=== PATIENT | male | born 2000 | race Caucasian/White ===

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

== ENCOUNTER 2022-07-20 16:00 | Emergency (ER) | payer BC, SELFPAY ==
--- NOTE | ~2022-07-20 | XR_ITS ---
EXAMINATION: XR foot LT min 3V DATE: 07/20/2022 16:19 INDICATION: Left foot pain and swelling. TECHNIQUE: 4 views of left foot were obtained. COMPARISON: Left foot radiographs 11/07/2011 FINDINGS: Bone alignment is normal. There is a nondisplaced oblique extra-articular fracture of base of third metatarsal. IMPRESSION: 1. Nondisplaced extra-articular oblique fracture of base of third metatarsal. Reviewed, dictated and finalized at location A.
[2022-07-20 16:13] VITALS: BP 121/60; PULSE 83; RESP 14; TEMP 37.5; O2SAT 100
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
== END 2022-07-20 17:15 | disposition home or self-care (01) ==
PROVIDERS: Emergency Provider Nurse Practitioner; PCP Internal Medicine Infectious Disease
DX: S92.335A Nondisplaced fracture of third metatarsal bone, left foot, initial encounter for closed fracture (principal); V86.06XA Driver of dirt bike or motor/cross bike injured in traffic accident, initial encounter; F17.200 Nicotine dependence, unspecified, uncomplicated
CPT/HCPCS: 29515; 73630; 99214; G0463

== ENCOUNTER 2022-08-08 09:28 | Emergency (ER) | payer BC, SELFPAY ==
[2022-08-08 09:33] VITALS: BP 116/70; PULSE 57; RESP 16; TEMP 36.6; O2SAT 100
--- NOTE | 2022-08-08 09:37 | ED.EAR ---
HPI - Ear Problem General Chief complaint: Ear Stated complaint: Ear Pain Time Seen by Provider: 08/08/22 09:30 Source: patient and RN notes reviewed History of Present Illness HPI Narrative: Patient is a 22-year-old male who presents to urgent care with complaints of left ear pain that started this morning. Patient has been taking Tylenol. States that he did go swimming a few days ago. Denies any fever or other upper respiratory complaints. No acute distress noted. Patient aware of the plan of care. Some parts of this dictation were generated by voice recognition software and may contain typographical and/or grammatical inaccuracies. Related Data Allergies Allergy/AdvReac Type Severity Reaction Status Date / Time No Known Allergies Allergy Verified 08/08/22 09:33 Review of Systems Review of Systems: CONSTITUTIONAL: Denies fever, chills, or sweats. EYES: Denies visual changes, redness, or discharge. ENT: Denies rhinorrhea, congestion, sore throat. Reports of left otalgia CARDIOVASCULAR: Denies chest pain, palpitations, or edema. RESPIRATORY: Denies cough or dyspnea. GASTROINTESTINAL: Denies abdominal pain, nausea, vomiting, or diarrhea. GENITOURINARY: Denies dysuria or hematuria. SKIN: Denies rash or itching. MUSCULOSKELETAL: Denies back pain, joint pain, or myalgia. NEUROLOGIC: Denies headache, numbness, or weakness. All other systems reviewed are negative, except as documented in HPI. [facility] Surgical History Surgical History H/O splenectomy Hx of abdominal surgery Social History Social History (Updated 07/25/22 @ 14:35 by Marcia Armendariz CMA) Smoking status: Current every day smoker Alcohol intake: current Substance use: never Gender identity (if verbalized by the patient): Male Comments At the time of my signature, I reviewed and agree with the nursing past medical, surgical, social, and family history. There is no relevant family history pertinent to the patient complaint. Exam Narrative: GENERAL: This is a well-nourished, well-developed patient, in no apparent distress. HEAD: normocephalic, atraumatic. EYES: PERRL. Sclera clear/white. Vision is grossly intact. EARS: External ears normal, auditory canals clear and without drainage, moderate erythema mild injection to the left TM. Right TM normal without perforation. Hearing grossly intact. NOSE: External nose normal with no obvious nasal discharge, nares without redness, no rhinorrhea. THROAT: Mucous membranes moist, posterior pharynx clear. NECK: Neck supple, SKIN: warm, intact with no suspicious lesions or rash, good texture and turgor. NEURO: awake, alert, and oriented to person, place Course Course Level of Care: Express Care Visit Vital Signs Vital signs: Vital Signs Temperature 98 F 08/08/22 09:33 Pulse Rate 57 L 08/08/22 09:33 Respiratory Rate 16 08/08/22 09:33 Blood Pressure 116/70 08/08/22 09:33 Pulse Oximetry 100 08/08/22 09:33 Oxygen Delivery Room Air 08/08/22 09:33 Temperature 98 F 08/08/22 09:33 Pulse Rate 57 L 08/08/22 09:33 Respiratory Rate 16 08/08/22 09:33 Blood Pressure 116/70 08/08/22 09:33 Pulse Oximetry 100 08/08/22 09:33 Oxygen Delivery Room Air 08/08/22 09:33 Reviewed Medical Decision Making MDM Narrative Medical decision making narrative: Advised patient to complete the oral antibiotic regimen as prescribed. Do not put anything in the ear such as bjvj-hwi-fzaiueq drops, Q-tips, peroxide or headphones. Do not submerge her head in water for the next 5-7 days. Follow-up with your PCP within 2-5 days or for worsening symptoms or failure to improve. Differential Diagnosis Differential Diagnosis: Pneumonia, Allergic Rhinitis, Upper respiratory cough syndrome, Pharyngitis, Sinusitis, Bronchitis, otitis media, viral URI, Asthma/reactive airway disease, COPD, emphysema Vital Signs Vital Signs: Vital Si
== END 2022-08-08 09:52 | disposition home or self-care (01) ==
PROVIDERS: Emergency Provider Nurse Practitioner Family; PCP Internal Medicine Infectious Disease
DX: H66.92 Otitis media, unspecified, left ear (principal); F17.200 Nicotine dependence, unspecified, uncomplicated
CPT/HCPCS: 99213; G0463

== ENCOUNTER 2022-10-22 16:47 | Emergency (ER) | payer BC, SELFPAY ==
[2022-10-22 16:55] VITALS: BP 103/67; PULSE 68; RESP 18; TEMP 37; O2SAT 100
[2022-10-22 16:58] VITALS: BP 103/67; PULSE 68; RESP 18; TEMP 37; O2SAT 100
--- NOTE | 2022-10-22 16:59 | ED.SKABFB ---
HPI - Skin/Abscess/Foreign Bdy General Chief complaint: Skin/Abscess/Foreign Body Stated complaint: Rash Time Seen by Provider: 10/22/22 16:59 Source: patient Mode of arrival: ambulatory Limitations: no limitations History of Present Illness HPI narrative: 22 yo M presents with itchy rash to bilateral hands and wrisit for 1 wk. Using calamine with no relief. No other complaints today. All systems reviewed and negative except as noted above. Related Data Allergies Allergy/AdvReac Type Severity Reaction Status Date / Time No Known Allergies Allergy Verified 10/22/22 16:56 Review of Systems Review of Systems: CONSTITUTIONAL: Denies fever, chills, or sweats. EYES: Denies visual changes, redness, or discharge. ENT: Denies rhinorrhea, congestion, sore throat, or otalgia. CARDIOVASCULAR: Denies chest pain, palpitations, or edema. RESPIRATORY: Denies cough or dyspnea. GASTROINTESTINAL: Denies abdominal pain, nausea, vomiting, or diarrhea. GENITOURINARY: Denies dysuria or hematuria. SKIN: Reports itchy rash to bilateral wrists and hands. MUSCULOSKELETAL: Denies back pain, joint pain, or myalgia. NEUROLOGIC: Denies headache, numbness, or weakness. PSYCHIATRIC: Denies anxiety or depression. All other systems reviewed are negative, except as documented in HPI. [facility] Surgical History Surgical History H/O splenectomy Hx of abdominal surgery Social History Social History Smoking status: Current every day smoker Alcohol intake: current Substance use: never Gender identity (if verbalized by the patient): Male Comments At time of signature, agree with nursing past medical, surgical, social and family history. There is no relevant family history pertinent to the presenting complaint. Exam Narrative: GENERAL: This is a well-nourished, well-developed patient, in no apparent distress. HEAD: normocephalic, atraumatic. EYES: PERRL. Sclera clear/white. Vision is grossly intact. EARS: External ears normal NOSE: External nose normal NECK: Neck supple, non-tender without lymphadenopathy, masses or thyromegaly. CARDIOVASCULAR: Regular rate and rhythm without murmurs, gallops, or rubs. RESPIRATORY: Clear to auscultation. Breath sounds equal bilaterally. No wheezes, rales, or rhonchi. SKIN: warm, Dry, intact, good texture and turgor. Pearly vesicular rash to bilateral hands and wrist, vesicles all long linear aspects and webbing of fingers. NEURO: awake, alert, and oriented to person, place and time. There were no obvious focal neurologic abnormalities. EXTREMITIES: No joint tenderness, effusion, or edema noted. Course Course Level of Care: Express Care Visit Vital Signs Vital signs: Vital Signs Temperature 37.0 C 10/22/22 16:55 Pulse Rate 68 10/22/22 16:55 Respiratory Rate 18 10/22/22 16:55 Blood Pressure 103/67 10/22/22 16:55 Pulse Oximetry 100 10/22/22 16:55 Oxygen Delivery Room Air 10/22/22 16:55 Temperature 37.0 C 10/22/22 16:58 Pulse Rate 68 10/22/22 16:58 Respiratory Rate 18 10/22/22 16:58 Blood Pressure 103/67 10/22/22 16:58 Pulse Oximetry 100 10/22/22 16:58 Oxygen Delivery Room Air 10/22/22 16:58 Reviewed MDM - Skin/Abscess/Foreign Bdy MDM Narrative Medical decision making narrative: Patient is aware of diagnosis, understands and agrees to treatment plan. Anticipatory guidance given. Patient agrees to follow-up as directed and is aware of reasons to seek care at the emergency department. Portions of this record may have been created with voice recognition software Differential Diagnosis Differential diagnosis: Likely eczema Discharge Plan Discharge Clinical Impression: Dyshidrotic eczema Patient Disposition: Home, Self-Care Condition: Stable Instructions: Dyshidrotic Eczema (ED) Additional Instructions: Take steroids a
== END 2022-10-22 17:08 | disposition home or self-care (01) ==
PROVIDERS: Emergency Provider Nurse Practitioner Family; PCP Internal Medicine Infectious Disease
DX: L30.1 Dyshidrosis [pompholyx] (principal); F17.200 Nicotine dependence, unspecified, uncomplicated
CPT/HCPCS: 99213; G0463

== ENCOUNTER 2023-11-18 14:21 | Emergency (ER) | payer BC, SELFPAY ==
--- NOTE | ~2023-11-18 | XR_ITS ---
XR hand RT min 3V Ordering provider: ERIC Akbar History: . punched door . Comparison: None. FINDINGS: BONES: No acute fracture or dislocation. Postoperative changes seen in the fifth metacarpal bone. JOINT SPACES: Normal. SOFT TISSUES: Normal. IMPRESSION: No acute osseous abnormality right hand. Postoperative changes in the fifth metacarpal bone. Reviewed, dictated and finalized at location A.
[2023-11-18 14:28] VITALS: BP 121/64; PULSE 55; RESP 20; TEMP 36.9; O2SAT 100
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
== END 2023-11-18 15:23 | disposition home or self-care (01) ==
PROVIDERS: Emergency Provider Nurse Practitioner Family
DX: S63.91XA Sprain of unspecified part of right wrist and hand, initial encounter (principal); W22.01XA Walked into wall, initial encounter; F17.210 Nicotine dependence, cigarettes, uncomplicated
CPT/HCPCS: 73130; 99213; G0463